=== PATIENT | male | born 1930 | race Caucasian/White ===

== ENCOUNTER 2016-07-08 18:01 | Emergency (ER) | payer MEDICARE ==
--- NOTE | 2016-07-08 20:05 | ED ---
General Adult HPI - General Chief complaint: Extremity Problem,Nontraumatic Stated complaint: POST OP LEG PROBLEM Time Seen by Provider: 07/08/16 19:08 Source: patient Mode of arrival: wheelchair Limitations: physical limitation - History of Present Illness Initial comments: Patient is an 85-year-old male status post stenting of the left SFA yesterday presenting with numbness to the right leg. Patient had stenting due to left leg pain from claudication. Access was through the right groin. Patient underwent procedure without complication and was discharged this afternoon. Shortly after getting home patient developed numbnessin his right leg extending to his calf. Surgeon was Dr. Hendrickson. Patient continues to use aspirin & Plavix. Otherwise patient denies any fever, chills, chest pain, shortness of breath, nausea, vomiting, diarrhea. Denies any muscle weakness. - Related Data Home Medications Medication Instructions Recorded Confirmed Calcium Carbonate/Vitamin D3 1 tab PO DAILY 12/23/14 07/08/16 [Calcium 600-Vit D3 400 Tablet] Cholecalciferol [Vitamin D3] 1,000 unit PO DAILY 12/23/14 07/08/16 Ferrous Sulfate [Iron (65 MG 325 mg PO HS 12/23/14 07/08/16 Elemental)] Isosorbide Mononitrate ER [Imdur] 60 mg PO QAM 12/23/14 07/08/16 Magnesium Chloride [Slow-Mag] 64 mg PO DAILY 12/23/14 07/08/16 Metoprolol Tartrate 25 mg PO BID 12/23/14 07/08/16 Multivitamins, Thera [Multivitamin] 1 tab PO DAILY 12/23/14 07/08/16 Naproxen Sodium [Aleve] 220 mg PO Q12HR PRN 12/23/14 07/08/16 [place]-3 Fatty Acids/Fish Oil [Fish 1,000 mg PO DAILY 12/23/14 07/08/16 Oil 1,000 mg Softgel] Omeprazole 40 mg PO DAILY 12/23/14 07/08/16 Ramipril [Altace] 5 mg PO QAM 12/23/14 07/08/16 Simvastatin [Zocor] 40 mg PO DAILY 12/23/14 07/08/16 Triamterene-Hctz 37.5-25Mg 1 cap PO DAILY 07/13/15 01/26/17 [Dyazide 37.5-25 Capsule] Aspirin [Adult Low Dose Aspirin EC] 81 mg PO HS 06/01/16 07/08/16 Bicalutamide [Casodex] 50 mg PO HS 06/01/16 07/08/16 Ubidecarenone [Co Q-10] 200 mg PO HS 06/01/16 07/08/16 Vit C/E/Zn/Coppr/Lutein/Zeaxan 1 cap PO BID 06/01/16 07/08/16 [Preservision Areds 2 Softgel] Previous Rx's Medication Instructions Recorded Clopidogrel [Plavix] 75 mg PO DAILY #1 tablet 07/08/16 Allergies Allergy/AdvReac Type Severity Reaction Status Date / Time shellfish derived [Shellfish] Allergy Nausea & Verified 07/08/16 19:40 Vomiting Review of Systems ROS Statement: Those systems with pertinent positive or pertinent negative responses have been documented in the HPI. ROS Other: All systems not noted in ROS Statement are negative. Past Medical History Past Medical History: Coronary Artery Disease (CAD), Cancer, GERD/Reflux, Hyperlipidemia, Hypertension, Osteoarthritis (OA), Sleep Apnea/CPAP/BIPAP, Vascular Disorder Additional Past Medical History / Comment(s): FIGUEROA'S ESOPHAGUS, hx skin cancer-recent areas to back removed, 44 radiation txs-last tx 06-04-17 for prostate cancer, now psa 0.0465,irregular heart rate, varicose veins,uses cpap History of Any Multi-Drug Resistant Organisms: None Reported Past Surgical History: Heart Catheterization With Stent Additional Past Surgical History / Comment(s): Abdominal Aortogram with Lower Ext Runoff, HEART STENTS X 3, JULIANN CATARACTS, MOEH'S PROCEDURES TO FACE, 07-07-16 LT FEM-POP ARTHRECTOMY AND 2 STENTS TO SFA. Left leg stent Past Anesthesia/Blood Transfusion Reactions: No Reported Reaction Date of Last Stent Placement:: 2003 Past Psychological History: No Psychological Hx Reported Smoking Status: Former smoker Past Alcohol Use History: None Reported Additional Past Alcohol Use History / Comment(s): QUIT SMOKING APPROX 2005, SMOKED FOR APPROX 50 YRS, 1 PPD. 1-2 glasses of wine daily Past Drug Use History: None Reported - Past Family History Brother(s) Family Medical History: Cancer Father Family Medical History: Cancer Daughter(s) Family Medical History: Deep Vein Thrombosis (DVT) General Exam - General Exam Comments Initial Comments: Constitutional: Patient appears well-developed and well-nourished. No distress. Head: Normocephalic and atraumatic. Eyes: Conjunctivae and EOM are normal. Right eye exhibits no discharge. Left eye exhibits no discharge. No scleral icterus. Neck: Normal range of motion. Neck supple. Cardiovascular: Normal rate and regular rhythm. No murmur heard. Pulmonary/Chest: Effort normal and breath sounds normal. No respiratory distress. No wheezes. Abdominal: Soft. No distension. There is no tenderness. There is no rebound and no guarding. : Right inguinal hernia which is reducible. Right incision is clean/dry/intact, no bleeding. Musculoskeletal: Normal range of motion. No edema or tenderness. Patient with 5 out of 5 muscle strength of bilateral lower extremities including hip flexors/extensors, knee flexors/extensors, plantar flexion and dorsi flexion. Neurological: Patient alert and oriented to person, place, and time. Patient has decreased sensation to the medial aspect of his upper right thigh and entire lower leg. Sensation is intact to first webspace, medial and lateral aspect of right foot. Sensation isn't intact to entire left leg. Bilateral DP pulses are present. Skin: Skin is warm and dry. Not diaphoretic. Nursing notes and vitals reviewed. Limitations: physical limitation Course Vital Signs 07/08/16 07/08/16 18:14 20:50 Temperature 98.1 F Pulse Rate 102 H 54 L Respiratory 20 16 Rate Blood Pressure 136/74 129/60 O2 Sat by Pulse 98 95 Oximetry - Reevaluation(s) Reevaluation #1: Patient updated on plan and CT ordered. Radiology department requesting that he gets pretreated given history of pretreatment however patient states he's not ALLERGIC to contrast. - Consultations Consultation #1: Discussed care with Dr. Barnes covering for Dr. Hendrickson. Medical Decision Making - Medical Decision Making Patient's an 85-year-old male status post stenting of his left SFA with right femoral artery access presenting with right leg paresthesias. Patient's blood was unremarkable with a stable hemoglobin 12.2. BMP unremarkable. CT angiogram did not show any mass effect or bleeding postoperatively causing the paresthesias. Patient significantly improved while here. CTA did show stenosis of bilateral lower x-rays which patient is aware of. Prior to discharge , patient was resting comfortably in bed. Course of stay improved. Denies pain. Discussed physical exam and diagnostic tests with patient. Questions answered and patient is agreeable to discharge with close follow up with Primary Care Physician. Instructed to return to Emergency Department if symptoms worsen. - Lab Data Result diagrams: 07/08/16 19:34 07/08/16 19:34 Lab Results 07/08/16 07/08/16 Range/Units 19:34 19:34 WBC 5.1 (3.8-10.6) k/uL RBC 3.73 L (4.30-5.90) m/uL Hgb 12.2 L (13.0-17.5) gm/dL Hct 35.8 L (39.0-53.0) % MCV 95.9 (80.0-100.0) fL MCH 32.7 (25.0-35.0) pg MCHC 34.1 (31.0-37.0) g/dL RDW 13.6 (11.5-15.5) % Plt Count 170 (150-450) k/uL Neutrophils % 80 % Lymphocytes % 7 % Monocytes % 9 % Eosinophils % 2 % Basophils % 0 % Neutrophils # 4.0 (1.3-7.7) k/uL Lymphocytes # 0.3 L (1.0-4.8) k/uL Monocytes # 0.5 (0-1.0) k/uL Eosinophils # 0.1 (0-0.7) k/uL Basophils # 0.0 (0-0.2) k/uL Sodium 138 (137-145) mmol/L Potassium 3.7 (3.5-5.1) mmol/L Chloride 102 (98-107) mmol/L Carbon Dioxide 22 (22-30) mmol/L Anion Gap 14 mmol/L BUN 23 H (9-20) mg/dL Creatinine 1.13 (0.66-1.25) mg/dL Est GFR (MDRD) Af Amer >60 (>60 ml/min/1.73 sqM) Est GFR (MDRD) Non-Af >60 (>60 ml/min/1.73 sqM) Glucose 128 H (74-99) mg/dL Calcium 9.7 (8.4-10.2) mg/dL Disposition Clinical Impression: Paresthesia Disposition: HOME SELF-CARE Condition: Good Instructions: Paresthesia (ED) Referrals: Gus Franco MD [Primary Care Provider] - 1-2 days Brooks Hendrickson MD [STAFF PHYSICIAN] - 1-2 days
[2016-07-08] MEDS ORDERED: RX INFO: IV CONTRAST WAS GIVEN 1 EACH MISC MISCELLANE PRN (20:14)
[2016-07-08] MEDS ORDERED: FAMOTIDINE 20 MG/2 ML VIAL IV STA (20:25)
[2016-07-08] MEDS ORDERED: methylPREDNISolone SOD SUCCI 125 MG/2 ML VIAL IV STA (20:25)
[2016-07-08] MEDS: diphenhydrAMINE 50 MG/ML 1 ML VIAL IVP STA ×2 (20:43→20:48)
[2016-07-08 20:53] LABS: Basophils % (A) 0 %; CH 33.2; CHCM 34.8; Eosinophils # (A) 0.1 k/uL (0-0.7); Eosinophils % (A) 2 %; HCT 35.8 % (39.0-53.0); HDW 2.58; HGB 12.2 gm/dL (13.0-17.5); Luc # (Auto) 0.11; Luc % (Auto) 2; Lymphocytes # (A) 0.3 k/uL (1.0-4.8); Lymphocytes % (A) 7 %; MCH 32.7 pg (25.0-35.0); MCHC 34.1 g/dL (31.0-37.0); MCV 95.9 fL (80.0-100.0); Mean Platelet Volume 7.2; Monocytes # (A) 0.5 k/uL (0-1.0); Monocytes % (A) 9 %; Neutrophils % (A) 80 %; RBC 3.73 m/uL (4.30-5.90); RDW 13.6 % (11.5-15.5); WBC 5.1 k/uL (3.8-10.6); WBC (Perox) 5.28
[2016-07-08 21:05] LABS: Anion Gap 14 mmol/L; Blood Urea Nitrogen 23 mg/dL (9-20); Calcium 9.7 mg/dL (8.4-10.2); Carbon Dioxide 22 mmol/L (22-30); Chloride 102 mmol/L (98-107); Glucose 128 mg/dL (74-99); Non-African American GFR(MDRD) >60 (>60 ml/min/1.73 sqM); Potassium 3.7 mmol/L (3.5-5.1); Sodium 138 mmol/L (137-145)
--- NOTE | 2016-07-08 22:47 | CT ---
EXAMINATION TYPE: CT ANGIO ABD AORTA WO/W CON DATE OF EXAM: 07/08/2016 10:06 PM COMPARISON: CT June 03, 2015 HISTORY: Right lower extremity numbness after left Fem-Pop arthrectomy and 2 stents to SFA on 07-07-[address] DLP: 1133.80 mGycm. Automated exposure control for dose reduction was used. TECHNIQUE: Performed with IV Contrast, patient injected with 100 mL of Omnipaque 350. FINDINGS: Imaging was obtained from the dome of the diaphragm to the level of the midcalf bilaterally . There are prominent nonaneurysmal atherosclerotic calcification and tortuosity seen throughout the visualized arterial anatomy. The aortoiliac inflow is widely patent. THE RIGHT external iliac artery is patent, as is the right internal iliac and the right common femora l artery. There are several stenoses throughout the course of the right superficial femoral artery, a nd the profunda femoral artery, but both appear patent - as does the popliteal artery. The anterior t ibial artery appears to occlude 5 cm distal to its origin. The posterior tibial artery patency is dif ficult to confirm, but the peroneal artery appears patent. THE LEFT external iliac artery is patent, as is the left internal iliac and the left common femoral a rtery. There are several stenoses throughout the course of the left superficial femoral artery, and t he profunda femoral artery, but both appear patent - as does the popliteal artery and a three vessel runoff. NONVASCULAR FINDINGS: No definite acute abdominal pelvic process, but there is a new finding since t he June 03, 2015 CT; there is a new right inguinal herniation of normal-appearing mesentery and s mall bowel loops noted, lateral to the inferior epigastric vasculature. IMPRESSION: 1. RIGHT LOWER EXTREMITY: MULTIFOCAL SIGNIFICANT APPEARING RIGHT SFA STENOSES, WITH A SINGLE VESSEL RUNOFF. 2. LEFT LOWER EXTREMITY: MULTIFOCAL SIGNIFICANT APPEARING LEFT SFA STENOSES, WITH THREE VESSEL RUNOFF . 3. NONSTRANGULATED RIGHT INGUINAL HERNIA.
[2016-07-08 23:53] VITALS: BP 170/79; PULSE 81; RESP 18; TEMP 97.5
== END 2016-07-08 23:47 | disposition home or self-care (01) ==
LOC: EC 18:01
DX: R20.0 Anesthesia of skin (principal); Z95.820 Peripheral vascular angioplasty status with implants and grafts; K21.9 Gastro-esophageal reflux disease without esophagitis; I10 Essential (primary) hypertension; E78.5 Hyperlipidemia, unspecified; I25.10 Atherosclerotic heart disease of native coronary artery without angina pectoris; K22.70 Barrett's esophagus without dysplasia; M19.90 Unspecified osteoarthritis, unspecified site; Z95.5 Presence of coronary angioplasty implant and graft; Z79.82 Long term (current) use of aspirin; Z79.899 Other long term (current) drug therapy; Z92.3 Personal history of irradiation; Z85.46 Personal history of malignant neoplasm of prostate; Z85.828 Personal history of other malignant neoplasm of skin; Z87.891 Personal history of nicotine dependence; Z91.041 Radiographic dye allergy status
CPT/HCPCS: 99284; 36415; 80048; 85025; 75635; 96374; 96375; J1200; J2930; Q9967

== ENCOUNTER → 2016-07-15 | Outpatient (CLI) | payer MEDICARE ==
--- NOTE | 2016-07-15 12:30 | XR ---
EXAMINATION TYPE: XR chest 2V DATE OF EXAM: 07/15/2016 12:23 PM COMPARISON: 06/03/2015 HISTORY: Cough and congestion FINDINGS: The lungs are clear and there is no pneumothorax, pleural effusion, or focal pneumonia. Heart is enl arged and atherosclerotic change aorta. Biapical pleural-based thickening noted. Arthropathy of the s houlders noted. Findings suggest COPD. Hypertrophic and degenerative change of the spine noted. IMPRESSION: 1. No acute process.
== END | disposition home or self-care (01) ==
LOC: RADXRMAIN 12:10
PROVIDERS: ATTEND Otolaryngology
DX: J20.9 Acute bronchitis, unspecified (principal)
CPT/HCPCS: 71020

== ENCOUNTER → 2016-11-10 | Outpatient (CLI) | payer MEDICARE ==
--- NOTE | 2016-11-10 11:44 | XR ---
Lumbosacral spine HISTORY: Prostate carcinoma, low back pain, other instability 5 views of the lumbosacral spine No comparisons Bone mineralization is reduced. There is multilevel spondylosis. No spondylolysis. Lumbar vertebral b odies show preserved height and alignment. There is minimal anterolisthesis grade 1 L5-S1. Some loss of disc height at the intervertebral levels is noted. Sclerosis present in the posterior elements. At herosclerotic vascular calcifications are noted, infrarenal aorta somewhat prominent. IMPRESSION: Anterolisthesis grade 1 L5-S1, degenerative disc disease. Facet arthropathy. Aortic ectas ia.
== END | disposition home or self-care (01) ==
LOC: RADXRMAIN 09:59
PROVIDERS: ATTEND Internal Medicine
DX: C61 Malignant neoplasm of prostate (principal); M43.17 Spondylolisthesis, lumbosacral region; M51.36 Other intervertebral disc degeneration, lumbar region; M46.86 Other specified inflammatory spondylopathies, lumbar region
CPT/HCPCS: 72110

== ENCOUNTER 2016-12-08 01:49 | Inpatient (IN) | payer MEDICARE ==
[2016-12-08] MEDS ORDERED: SODIUM CHLORIDE 0.9% 500 ML IV STA (02:02)
[2016-12-08] MEDS ORDERED: MORPHINE SULFATE 2 MG/ML SYRINGE IVP STA (02:02)
[2016-12-08] MEDS ORDERED: ONDANSETRON 4 MG/2 ML VIAL IVP STA (02:02)
--- NOTE | 2016-12-08 02:11 | ED ---
Abdominal Pain HPI - General Source: patient, EMS, RN notes reviewed Mode of arrival: EMS Limitations: no limitations <Luis Bagley - Last Filed: 12/08/16 02:09> <Gilbert Mehta - Last Filed: 12/08/16 05:13> - General Chief Complaint: Abdominal Pain Stated Complaint: Abdominal Pain Time Seen by Provider: 12/08/16 01:56 - History of Present Illness Initial Comments: This is a 5-year-old male presents emergency Department chief complaint abdominal pain. Patient states the pain started after eating dinner tonight. Patient states his lower abdominal pain and diffuse in nature. Patient denies any associated nausea, vomiting, diarrhea constipation. Denies any dysuria or hematuria. Patient states that he also has chronic back and right leg pain. Patient states that he had an epidural performed by Dr. Rivas yesterday. Patient did admit to a fall after when he was changing. Patient states he fell and hit a wastebasket causing an injury to the right side of his neck. Patient denies any headache or dizziness. Denies fever or chills. (Luis Bagley) Patient states fall was 2 days ago. (Gilbert Mehta) - Related Data Home Medications Medication Instructions Recorded Confirmed Calcium Carbonate/Vitamin D3 1 tab PO DAILY 12/23/14 07/08/16 [Calcium 600-Vit D3 400 Tablet] Cholecalciferol [Vitamin D3] 1,000 unit PO DAILY 12/23/14 07/08/16 Ferrous Sulfate [Iron (65 MG 325 mg PO HS 12/23/14 07/08/16 Elemental)] Isosorbide Mononitrate ER [Imdur] 60 mg PO QAM 12/23/14 07/08/16 Magnesium Chloride [Slow-Mag] 64 mg PO DAILY 12/23/14 07/08/16 Metoprolol Tartrate 25 mg PO BID 12/23/14 07/08/16 Multivitamins, Thera [Multivitamin 1 tab PO DAILY 12/23/14 07/08/16 (formulary)] Naproxen Sodium [Aleve] 220 mg PO Q12HR PRN 12/23/14 07/08/16 [place]-3 Fatty Acids/Fish Oil [Fish 1,000 mg PO DAILY 12/23/14 07/08/16 Oil 1,000 mg Softgel] Omeprazole 40 mg PO DAILY 12/23/14 07/08/16 Ramipril [Altace] 5 mg PO QAM 12/23/14 07/08/16 Simvastatin [Zocor] 40 mg PO DAILY 12/23/14 07/08/16 Triamterene-Hctz 37.5-25Mg 1 cap PO DAILY 12/23/14 07/08/16 [Dyazide 37.5-25 Capsule] Aspirin [Adult Low Dose Aspirin EC] 81 mg PO HS 06/01/16 07/08/16 Bicalutamide [Casodex] 50 mg PO HS 06/01/16 07/08/16 Ubidecarenone [Co Q-10] 200 mg PO HS 06/01/16 07/08/16 Vit C/E/Zn/Coppr/Lutein/Zeaxan 1 cap PO BID 06/01/16 07/08/16 [Preservision Areds 2 Softgel] Previous Rx's Medication Instructions Recorded Clopidogrel [Plavix] 75 mg PO DAILY #1 tablet 07/08/16 Allergies Allergy/AdvReac Type Severity Reaction Status Date / Time shellfish derived [Shellfish] Allergy Nausea & Verified 12/08/16 02:44 Vomiting Review of Systems ROS Other: All systems not noted in ROS Statement are negative. <Luis Bagley - Last Filed: 12/08/16 02:09> ROS Other: All systems not noted in ROS Statement are negative. <Gilbert Mehta - Last Filed: 12/08/16 05:13> ROS Statement: Those systems with pertinent positive or pertinent negative responses have been documented in the HPI. Past Medical History Past Medical History: Coronary Artery Disease (CAD), Cancer, GERD/Reflux, Hyperlipidemia, Hypertension, Osteoarthritis (OA), Sleep Apnea/CPAP/BIPAP, Vascular Disorder Additional Past Medical History / Comment(s): FIGUEROA'S ESOPHAGUS, hx skin cancer-recent areas to back removed, 44 radiation txs-last tx 06-04-17 for prostate cancer, now psa 0.0465,irregular heart rate, varicose veins,uses cpap History of Any Multi-Drug Resistant Organisms: None Reported Past Surgical History: Heart Catheterization With Stent Additional Past Surgical History / Comment(s): Abdominal Aortogram with Lower Ext Runoff, HEART STENTS X 3, JULIANN CATARACTS, MOEH'S PROCEDURES TO FACE, 1-25-17 LT FEM-POP ARTHRECTOMY AND 2 STENTS TO SFA. Left leg stent Past Anesthesia/Blood Transfusion Reactions: No Reported Reaction Date of Last Stent Placement:: 2003 Past Psychological History: No Psychological Hx Reported Smoking Status: Former smoker Past Alcohol Use History: Occasional Past Drug Use History: None Reported - Past Family History Brother(s) Family Medical History: Cancer Father Family Medical History: Cancer Daughter(s) Family Medical History: Deep Vein Thrombosis (DVT) <Luis Bagley - Last Filed: 12/08/16 02:09> General Exam Limitations: no limitations General appearance: alert, in no apparent distress Respiratory exam: Present: normal lung sounds bilaterally. Absent: respiratory distress, wheezes, rales, rhonchi, stridor Cardiovascular Exam: Present: regular rate, normal rhythm, normal heart sounds. Absent: systolic murmur, diastolic murmur, rubs, gallop, clicks GI/Abdominal exam: Present: soft, tenderness (minimal low abdominal tenderness) , normal bowel sounds. Absent: distended, guarding, rebound, rigid Extremities exam: Present: other (lower extremity strength equal bilateral neurovascular intact pedal pulses equal bilaterally there is no rashes noted equal color equal warmth) Back exam: Present: full ROM, tenderness (lumbar). Absent: CVA tenderness (R), CVA tenderness (L) Neurological exam: Present: alert, oriented X3, CN II-XII intact, reflexes normal. Absent: motor sensory deficit Skin exam: Present: warm, dry <Luis Bagley - Last Filed: 12/08/16 02:09> Course <Luis Bagley - Last Filed: 12/08/16 02:09> <Gilbert Mehta - Last Filed: 12/08/16 05:13> Vital Signs 12/08/16 12/08/16 12/08/16 01:50 02:11 02:31 Temperature 98.7 F Pulse Rate 85 80 78 Respiratory 18 18 18 Rate Blood Pressure 199/93 195/84 167/71 O2 Sat by Pulse 97 96 96 Oximetry 12/08/16 12/08/16 02:51 03:58 Temperature Pulse Rate 75 76 Respiratory 18 18 Rate Blood Pressure 132/62 168/78 O2 Sat by Pulse 96 96 Oximetry - Reevaluation(s) Reevaluation #1: 12/08/16 04:45 Patient reevaluated by myself, Dr. Mehta. Patient is comfortable resting in bed. Abdomen is soft and nontender. No significant back pain to palpation. Distally extremity is neurovascularly intact. Good strength. Good sensation. Pedal pulses 2/4 bilateral. Patient updated on results. Dr. Hinson has been paged. 12/08/16 05:13 Case was earlier discussed with Dr. Hinson, who will admit. (Gilbert Mehta) Medical Decision Making - Lab Data Result diagrams: 12/08/16 02:00 12/08/16 02:00 - Radiology Data Radiology results: report reviewed (Computed tomography scan of the abdomen and pelvis shows concern for acute insufficiency fractures consisting of nondisplaced fractures anterior inferior corner L1 vertebral body, bilateral transverse L5, and right sacrum with suspected left sacrum.) <Gilbert Mehta - Last Filed: 12/08/16 05:13> - Lab Data Lab Results 12/08/16 12/08/16 12/08/16 Range/Units 02:00 02:00 02:09 WBC 8.2 (3.8-10.6) k/uL RBC 3.79 L (4.30-5.90) m/uL Hgb 11.9 L (13.0-17.5) gm/dL Hct 34.8 L (39.0-53.0) % MCV 91.7 (80.0-100.0) fL MCH 31.3 (25.0-35.0) pg MCHC 34.1 (31.0-37.0) g/dL RDW 14.0 (11.5-15.5) % Plt Count 193 (150-450) k/uL Neutrophils % 90 % Lymphocytes % 4 % Monocytes % 5 % Eosinophils % 1 % Basophils % 0 % Neutrophils # 7.4 (1.3-7.7) k/uL Lymphocytes # 0.3 L (1.0-4.8) k/uL Monocytes # 0.4 (0-1.0) k/uL Eosinophils # 0.1 (0-0.7) k/uL Basophils # 0.0 (0-0.2) k/uL Sodium 135 L (137-145) mmol/L Potassium 4.0 (3.5-5.1) mmol/L Chloride 98 (98-107) mmol/L Carbon Dioxide 26 (22-30) mmol/L Anion Gap 11 mmol/L BUN 32 H (9-20) mg/dL Creatinine 1.20 (0.66-1.25) mg/dL Est GFR (MDRD) Af Amer >60 (>60 ml/min/1.73 sqM) Est GFR (MDRD) Non-Af 57 (>60 ml/min/1.73 sqM) Glucose 131 H (74-99) mg/dL Calcium 9.7 (8.4-10.2) mg/dL Total Bilirubin 0.5 (0.2-1.3) mg/dL AST 26 (17-59) U/L ALT 36 (21-72) U/L Alkaline Phosphatase 104 (38-126) U/L Total Protein 7.4 (6.3-8.2) g/dL Albumin 4.5 (3.5-5.0) g/dL Amylase 77 (30-110) U/L Lipase 131 (23-300) U/L Urine Color Light Yellow Urine Appearance Clear (Clear) Urine pH 6.0 (5.0-8.0) Ur Specific [place] 1.006 (1.001-1.035) Urine Protein Negative (Negative) Urine Glucose (UA) Negative (Negative) Urine Ketones Negative (Negative) Urine Blood Negative (Negative) Urine Nitrite Negative (Negative) Urine Bilirubin Negative (Negative) Urine Urobilinogen <2.0 (<2.0) mg/dL Ur Leukocyte Esterase Negative (Negative) Disposition <Luis Bagley - Last Filed: 12/08/16 02:09> Decision Time: 05:13 <Gilbert Mehta - Last Filed: 12/08/16 05:13> Clinical Impression: Fracture of lumbar spine Disposition: ADMITTED IP TO THIS [facility] Referrals: Gus Franco MD [Primary Care Provider] - 1-2 days
[2016-12-08 02:18] LABS: Appearance,Urine Clear (Clear); Bilirubin,Urine Negative (Negative); Glucose,Urine (UA) Negative (Negative); Ketones,Urine Negative (Negative); Leukocyte Esterase,Urine Negative (Negative); Nitrite,Urine Negative (Negative); Protein,Urine Negative (Negative); Specific Gravity,Urine 1.006 (1.001-1.035); UA Billing (MACRO vs. MICRO) CHEM; Urobilinogen,Urine <2.0 mg/dL (<2.0)
[2016-12-08 02:22] LABS: ALT 36 U/L (21-72); AST 26 U/L (17-59); Alkaline Phosphatase 104 U/L (38-126); Amylase 77 U/L (30-110); Anion Gap 11 mmol/L; Blood Urea Nitrogen 32 mg/dL (9-20); Calcium 9.7 mg/dL (8.4-10.2); Carbon Dioxide 26 mmol/L (22-30); Chloride 98 mmol/L (98-107); Glucose 131 mg/dL (74-99); Non-African American GFR(MDRD) 57 (>60 ml/min/1.73 sqM); Sodium 135 mmol/L (137-145); Total Bilirubin 0.5 mg/dL (0.2-1.3); Total Protein 7.4 g/dL (6.3-8.2)
[2016-12-08 02:30] LABS: Basophils % (A) 0 %; CH 31.7; CHCM 34.7; Eosinophils # (A) 0.1 k/uL (0-0.7); Eosinophils % (A) 1 %; HCT 34.8 % (39.0-53.0); HGB 11.9 gm/dL (13.0-17.5); Luc # (Auto) 0.08; Luc % (Auto) 1; Lymphocytes # (A) 0.3 k/uL (1.0-4.8); Lymphocytes % (A) 4 %; MCH 31.3 pg (25.0-35.0); MCHC 34.1 g/dL (31.0-37.0); MCV 91.7 fL (80.0-100.0); Mean Platelet Volume 7.2; Monocytes # (A) 0.4 k/uL (0-1.0); Monocytes % (A) 5 %; Neutrophils # (A) 7.4 k/uL (1.3-7.7); Neutrophils % (A) 90 %; RBC 3.79 m/uL (4.30-5.90); WBC 8.2 k/uL (3.8-10.6); WBC (Perox) 8.37
[2016-12-08] MEDS ORDERED: RX INFO: IV CONTRAST WAS GIVEN 1 EACH MISC MISCELLANE PRN (02:50)
--- NOTE | 2016-12-08 02:59 | XR ---
INDICATION: Abdominal pain COMPARISON: None. FINDINGS: AP views of the abdomen (2 images) are provided. Bowel gas pattern is nonobstructive with moderate roque colonic gas and stool. No abnormally dilated bowel loops are visualized. There are mesenteric vascular calcifications. There is lumbar spondylosis without evidence of acute osseous abnormality. IMPRESSION: Nonobstructive bowel gas pattern. Moderate roque colonic stool retention.
--- NOTE | 2016-12-08 04:16 | CT ---
INDICATION: Abdominal pain, history of prostate cancer, recent epidural pain injection. TECHNIQUE: Multiple, contiguous axial cuts of the abdomen and pelvis are obtained from the lung bases to the ischial tuberosities following the administration of 120 mL Visipaque 320 IV contrast. Image acquisition is performed during early and delayed postcontrast phases. Sagittal and coronal reformatted images are available. DOSE INFORMATION: CTDIvol 64.49 mGy; DLP 2789 mGy-cm. Technique more: This CT exam was performed using one or more of the following dose reduction techniques: automated exposure control, adjustment of the mA and/or kV according to patient size, and/or use of iterative reconstruction technique. COMPARISON: CT abdomen and pelvis, 06/03/15 FINDINGS: There is bibasilar subsegmental atelectasis. Stable hepatic hypodensities, too small to characterize but statistically representing cysts. The gallbladder, pancreas, and left adrenal gland are unremarkable. There is a stable 1.4 cm right adrenal nodule. Splenic calcifications are consistent with old granulomatous disease. There are bilateral renal cysts. Nonobstructing renal calcifications are similar to prior exam and may be vascular. There is no hydronephrosis. There is extensive aortoiliac and mesenteric atherosclerosis. There is no aneurysm. There is no adenopathy. There is no evidence of small or large bowel obstruction. There is a right inguinal hernia containing a loop of small bowel. The visualized appendix is normal. There is colonic diverticulosis without acute diverticulitis. There is prostatomegaly. There is mild distention of the urinary bladder. There is no free fluid or free air. Bones are osteopenic. There is an acute nondisplaced fracture extending through the anteroinferior corner of the L1 vertebral body extending to the L1-L2 disc space but without extension to the posterior vertebral body margin and without retropulsion (6-66). There are acute nondisplaced fractures of the bilateral transverse processes at L5. There is an acute nondisplaced fracture through the right sacrum. There is a suspected acute nondisplaced fracture through the left sacrum. No underlying pathologic lesions are visualized. IMPRESSION: 1. Acute insufficiency fractures consisting of nondisplaced fracture through the anteroinferior corner of the L1 vertebral body, acute nondisplaced fractures of the bilateral transverse processes of L5, and acute fracture through the right sacrum with suspected acute left-sided sacral fracture as well.
[2016-12-08] MEDS ORDERED: MORPHINE SULFATE 4 MG/ML SYRINGE IV PRN (05:14)
[2016-12-08] MEDS ORDERED: NALOXONE 0.4 MG/ML 1 ML VIAL IV PRN (05:14)
[2016-12-08] MEDS: SODIUM CHLORIDE 0.9% 1,000 ML IV SCH (07:41)
--- NOTE | 2016-12-08 12:59 | P.HPOR ---
History of Present Illness H&P Date: 12/08/16 This is an 85-year-old male who is admitted for multiple lumbar fractures. Patient states he received an epidural injection by Dr. Rivas on Tuesday, . Patient states after the injection he didn't realize his right leg was numb. This caused the patient to fall while the patient was getting dressed. Patient states he hit his neck on a wastebasket. Patient denies any loss of consciousness. Patient states he was evaluated after his fall and was a little sore but seemed to be getting better. Patient states that Tuesday night the pain in his lower back and right leg was getting worse. Patient also states he had some abdominal pain that he was concerned about. Patient presented to the [facility] early this morning for further evaluation and was found to have multiple lumbar fractures on CT scan. Patient's who is also present in the room states the patient had an MRI on 12/01/2016 showing evidence for possible sacral fractures, but states there were no compression fractures of the spine on this MRI. Patient states he has pain that radiates down the right leg all the way to the right foot. Patient denies any numbness, weakness, or tingling to the right lower extremity. Patient states he has no pain to the left lower extremity. Patient denies any change in bowel or bladder function or loss of sensation to the saddle area. Patient states his abdominal pain is better today. Patient states he has some mild soreness in the neck, but this has somewhat improved. Patient denies any fever, chills, headache, nausea/ vomiting/diarrhea. Review of Systems See HPI. Past Medical History Past Medical History: Coronary Artery Disease (CAD), Cancer, GERD/Reflux, Hyperlipidemia, Hypertension, Osteoarthritis (OA), Sleep Apnea/CPAP/BIPAP, Vascular Disorder Additional Past Medical History / Comment(s): FIGUEROA'S ESOPHAGUS, hx skin cancer-recent areas to back removed, 44 radiation txs-last tx 06-04-17 for prostate cancer, now psa 0.0465,irregular heart rate, varicose veins,uses cpap History of Any Multi-Drug Resistant Organisms: None Reported Past Surgical History: Heart Catheterization With Stent Additional Past Surgical History / Comment(s): Abdominal Aortogram with Lower Ext Runoff, HEART STENTS X 3, JULIANN CATARACTS, MOEH'S PROCEDURES TO FACE, 07-07-16 LT FEM-POP ARTHRECTOMY AND 2 STENTS TO SFA. Left leg stent Past Anesthesia/Blood Transfusion Reactions: No Reported Reaction Date of Last Stent Placement:: 2003 Past Psychological History: No Psychological Hx Reported Smoking Status: Former smoker Past Alcohol Use History: Occasional Past Drug Use History: None Reported - Past Family History Brother(s) Family Medical History: Cancer Father Family Medical History: Cancer Daughter(s) Family Medical History: Deep Vein Thrombosis (DVT) Medications and Allergies Home Medications Medication Instructions Recorded Confirmed Type Calcium Carbonate/Vitamin D3 1 tab PO DAILY 12/23/14 12/08/16 History [Calcium 600-Vit D3 400 Tablet] Ferrous Sulfate [Iron (65 MG 325 mg PO HS 12/23/14 12/08/16 History Elemental)] Isosorbide Mononitrate ER [Imdur] 60 mg PO QAM 12/23/14 12/08/16 History Magnesium Chloride [Slow-Mag] 64 mg PO DAILY 12/23/14 12/08/16 History Metoprolol Tartrate 25 mg PO BID 12/23/14 12/08/16 History Multivitamins, Thera [Multivitamin 1 tab PO DAILY 12/23/14 12/08/16 History (formulary)] Naproxen Sodium [Aleve] 220 mg PO Q12HR PRN 12/23/14 12/08/16 History [facility]-3 Fatty Acids/Fish Oil [Fish 1,000 mg PO DAILY 12/23/14 12/08/16 History Oil 1,000 mg Softgel] Omeprazole 40 mg PO DAILY 12/23/14 12/08/16 History Simvastatin [Zocor] 40 mg PO DAILY 12/23/14 12/08/16 History Triamterene-Hctz 37.5-25Mg 1 cap PO DAILY 12/23/14 12/08/16 History [Dyazide 37.5-25 Capsule] Aspirin [Adult Low Dose Aspirin [facility]] 81 mg PO HS 06/01/16 12/08/16 History Ubidecarenone [Co Q-10] 200 mg PO HS 06/01/16 12/08/16 History Vit C/E/Zn/Coppr/Lutein/Zeaxan 1 cap PO BID 06/01/16 12/08/16 History [Preservision Areds 2 Softgel] Docusate [Colace] 100 mg PO DAILY 12/08/16 12/08/16 History Losartan Potassium [Cozaar] 50 mg PO DAILY 12/08/16 12/08/16 History Allergies Allergy/AdvReac Type Severity Reaction Status Date / Time shellfish derived [Shellfish] Allergy Nausea & Verified 12/08/16 08:11 Vomiting Physical Examination Patient is answering all questions appropriately. Patient is alert and oriented 3. Patient is in no acute distress. On examination of the head and neck patient has mild tenderness to palpation of the cervical midline. Patient has mild pain with range of motion of the head and neck. There is ecchymosis and an abrasion to the right side of the neck from when the patient fell. No sign of infection. No pain to palpation of bilateral shoulders, arms, wrists or hands. Patient has no pain with range of motion of bilateral upper extremities. Patient's strength is 5/5 to bilateral upper extremities. Neurovascular status intact. No pain with palpation of bilateral ribs. On exam of the patient's spine there is mild tenderness to palpation over the thoracic spine. There is significant tenderness to the lumbar spine and sacrum. No ecchymosis. On exam of bilateral lower extremities there is no tenderness to palpation. Patient has pain with range of motion of the right lower extremity. Patient is able to actively flex the right knee, but this is limited due to pain. Patient states he only has mild pain with range of motion of the left lower extremity. Patient has full foot and ankle motion with no tenderness. Strength is 5/5 bilateral lower extremities. Sensation intact. Dorsalis pedis pulses are 2+ bilaterally. Results CT scan on 12/08/2016 was reviewed showing: Acute insufficiency fractures consisting of a nondisplaced fracture through the anterior inferior corner of the L1 vertebral body, acute nondisplaced fractures of the bilateral transverse processes of L5, and acute fracture through the right sacrum with suspected acute left-sided sacral fracture as well. Reported by . - Labs Labs: Abnormal Lab Results - Last 24 Hours (Table) 12/08/16 12/08/16 Range/Units 02:00 02:00 RBC 3.79 L (4.30-5.90) m/uL Hgb 11.9 L (13.0-17.5) gm/dL Hct 34.8 L (39.0-53.0) % Lymphocytes # 0.3 L (1.0-4.8) k/uL Sodium 135 L (137-145) mmol/L BUN 32 H (9-20) mg/dL Glucose 131 H (74-99) mg/dL H & H 12/08/16 Range/Units 02:00 Hgb 11.9 L (13.0-17.5) gm/dL Hct 34.8 L (39.0-53.0) % Result Diagrams: 12/08/16 02:00 12/08/16 02:00 Assessment and Plan (1) Fracture of lumbar spine Status: Acute Plan: #1. Continue bed rest and head of bed less than 45. #2. Consult Dr. Rowan. #3. Appreciated input for medicine. #4. Will continue to follow the patient closely.
--- NOTE | 2016-12-08 17:22 | P.CNOR ---
History of Present Illness - HPI Consult date: 12/08/16 Consult reason: fracture, low back pain History of present illness: Patient is a very pleasant 85-year-old male who was seen and examined today at bedside. Apparently yesterday he was at [facility] for epidural steroid injections with Dr. Vela. He did well with his injection and when he was getting ready to leave he was standing up and changing his clothes. He tried to step down he didn't realize his leg was numb and he fell over while getting dressed. He did not hit his head on the ground. He says he denies any loss of consciousness. He says he felt very sore at his back and his legs yesterday. He says that since he's been in the hospital he has been feeling better. He's been laying still and feels that his pain is significantly improved. He denies any new pains. He denies any pain that his groin pain. He denies any changes in his bowel or bladder function. He still has some pain at his back and his leg but is reluctant to try to stand up. He had a new computed tomography scan of his lower back and that she'll multiple lumbar fractures on the computed tomography scan as well as transosseous process fractures at L5. It also showed sacral insufficiency fracture which was also noted on an MRI from 12/01/2016 prior to his fall. There did not appear to be obvious compression fractures on his MRI from 12/01. He denies any fevers chills or night sweats. He denies any chest pain or shortness of breath. Denies any loss of conscious. He denies any visual changes. Review of Systems As per HPI. He denies any abdominal pain. Denies any chest pain or shortness breath. He is able to breathe comfortably. He has been able to eat. He is passing gas appropriately. Past Medical History Past Medical History: Coronary Artery Disease (CAD), Cancer, GERD/Reflux, Hyperlipidemia, Hypertension, Osteoarthritis (OA), Sleep Apnea/CPAP/BIPAP, Vascular Disorder Additional Past Medical History / Comment(s): FIGUEROA'S ESOPHAGUS, hx skin cancer-recent areas to back removed, 44 radiation txs-last tx 06-04-17 for prostate cancer, now psa 0.0465,irregular heart rate, varicose veins,uses cpap History of Any Multi-Drug Resistant Organisms: None Reported Past Surgical History: Heart Catheterization With Stent Additional Past Surgical History / Comment(s): Abdominal Aortogram with Lower Ext Runoff, HEART STENTS X 3, JULIANN CATARACTS, MOEH'S PROCEDURES TO FACE, 07-07-16 LT FEM-POP ARTHRECTOMY AND 2 STENTS TO SFA. Left leg stent Past Anesthesia/Blood Transfusion Reactions: No Reported Reaction Date of Last Stent Placement:: 2003 Past Psychological History: No Psychological Hx Reported Smoking Status: Former smoker Past Alcohol Use History: Occasional Past Drug Use History: None Reported - Past Family History Brother(s) Family Medical History: Cancer Father Family Medical History: Cancer Daughter(s) Family Medical History: Deep Vein Thrombosis (DVT) Medications and Allergies Home Medications Medication Instructions Recorded Confirmed Type Calcium Carbonate/Vitamin D3 1 tab PO DAILY 12/23/14 12/08/16 History [Calcium 600-Vit D3 400 Tablet] Ferrous Sulfate [Iron (65 MG 325 mg PO HS 12/23/14 12/08/16 History Elemental)] Isosorbide Mononitrate ER [Imdur] 60 mg PO QAM 12/23/14 12/08/16 History Magnesium Chloride [Slow-Mag] 64 mg PO DAILY 12/23/14 12/08/16 History Metoprolol Tartrate 25 mg PO BID 12/23/14 12/08/16 History Multivitamins, Thera [Multivitamin 1 tab PO DAILY 12/23/14 12/08/16 History (formulary)] Naproxen Sodium [Aleve] 220 mg PO Q12HR PRN 12/23/14 12/08/16 History [place]-3 Fatty Acids/Fish Oil [Fish 1,000 mg PO DAILY 12/23/14 12/08/16 History Oil 1,000 mg Softgel] Omeprazole 40 mg PO DAILY 12/23/14 12/08/16 History Simvastatin [Zocor] 40 mg PO DAILY 12/23/14 12/08/16 History Triamterene-Hctz 37.5-25Mg 1 cap PO DAILY 12/23/14 12/08/16 History [Dyazide 37.5-25 Capsule] Aspirin [Adult Low Dose Aspirin [facility]] 81 mg PO HS 06/01/16 12/08/16 History Ubidecarenone [Co Q-10] 200 mg PO HS 06/01/16 12/08/16 History Vit C/E/Zn/Coppr/Lutein/Zeaxan 1 cap PO BID 06/01/16 12/08/16 History [Preservision Areds 2 Softgel] Docusate [Colace] 100 mg PO DAILY 12/08/16 12/08/16 History Losartan Potassium [Cozaar] 50 mg PO DAILY 12/08/16 12/08/16 History Allergies Allergy/AdvReac Type Severity Reaction Status Date / Time shellfish derived [Shellfish] Allergy Nausea & Verified 12/08/16 08:11 Vomiting Physical Examination Osteopathic Statement: *. No significant issues noted on an osteopathic structural exam other than those noted in the History and Physical/Consult. - L Spine: dermatomal strength & reflexes bilateral Strength: hip flexion: 4/5 (Has right lower extremity he has some global weakness due to pain. He is able to lift his legs up off the bed independently. He has sustained dorsal to plantar flexion and extensor hallucis longus equal bilaterally. He has some breakaway strength with hip flexion on the right. He is no tenderness with internal/external rotation of his hips. There is no open wounds lacerations or abrasions. At his back he has no open wounds lacerations or abrasions. There is no significant tenderness to palpation on the midline. He has some pain over his sacrum. His abdomen is soft nontender his chest has good excursion with deep inspiration and expiration his upper extremities have full active and passive range of motion his neck is nontender to palpation range of motion) Results - Labs Labs: Abnormal Lab Results - Last 24 Hours (Table) 12/08/16 12/08/16 Range/Units 02:00 02:00 RBC 3.79 L (4.30-5.90) m/uL Hgb 11.9 L (13.0-17.5) gm/dL Hct 34.8 L (39.0-53.0) % Lymphocytes # 0.3 L (1.0-4.8) k/uL Sodium 135 L (137-145) mmol/L BUN 32 H (9-20) mg/dL Glucose 131 H (74-99) mg/dL H & H 12/08/16 Range/Units 02:00 Hgb 11.9 L (13.0-17.5) gm/dL Hct 34.8 L (39.0-53.0) % Result Diagrams: 12/08/16 02:00 12/08/16 02:00 - Diagnostic results CT Scan - lumbar: report reviewed, image reviewed (Computed tomography scan on 12/08/2016 shows insufficiency fractures and nondisplaced fracture through the anterior corner of L1 vertebral body. There is non-displaced fractures the transverse process of L5. There is a fracture through the right sacrum and left sacral ala. 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 The fractures at L1 and L5 appear to be acute due to his fall yesterday. The patient has significant pain due to his fall and sustained a number of blunt injuries due to his fall and his osteoporosis. He has compression fractures and transverse process fractures at L5 and may do well with brace treatment. We do not plan any acute surgical intervention and he should do well with bracing and mobilization with physical therapy with the brace on. He does not need to use the brace while he is in bed area he may remove it when he is in bed and during bathing. He may also have some benefit with a donut seat cushion for his sacral insufficiency fracture for his comfort. The sacral insufficiency fracture was present prior to his fall yesterday. His legs appear to have good neurologic function at this point without acute change. We will see how his radicular symptoms continue to progress status post epidural steroid injection. I discussed his injuries and his issues as well as his treatment with him at length at bedside. I answered his questions best my ability in a language she can understand and is agreeable with plan. We'll continue to follow him along with you.
[2016-12-08] MEDS: METOPROLOL TARTRATE 25 MG TAB PO SCH (20:33)
[2016-12-08] MEDS: FERROUS SULFATE 325 MG TAB PO SCH (20:33)
[2016-12-08] MEDS: ASPIRIN 81 MG CHEW PO SCH (21:12)
[2016-12-09] MEDS: SODIUM CHLORIDE 0.9% 1,000 ML IV SCH (05:48)
--- NOTE | 2016-12-09 08:10 | P.PN ---
Progress Note - Text The patient is seen and examined today at bedside. He has not received his brace. He is sitting up at the chair next to his bed and having his breakfast. He says his pain is somewhat improved but still present and he has difficulty trying to move on his own. He is not complaining of numbness tingling in his lower extremity this morning other than his regular pain. He's afebrile stable vital signs He has sustained dorsal flexion plantarflexion and EHL and knee extension. His thighs and calves soft nontender. No signs symptoms of DVT His chest has good excursion deep inspection expiration Low back pain status post fall Acute on chronic back pain L1 compression fracture, acute osteoporotic due to low energy fall transverse process fractures L 5, acute Sacral insufficiency fractures, subacute The patient has new fractures as well as a subacute sacral insufficiency fracture with acute on chronic pain at his lower back. We need to continue to work on his mobility and pain control. He has not yet received his brace but this may allow him some improvement in terms of his mobilization. He should use the brace when working on his mobility. He should use a 1 out of bed but if he is in a well supported chair he can have the brace off. He can have the brace off while in bed and also for bathing. Would not plan any surgical intervention and once his pain is controlled and he is okay with his mobilization and safe from therapy we can plan for his discharge
[2016-12-09] MEDS: PANTOPRAZOLE 40 MG TABLET PO SCH (08:34)
[2016-12-09] MEDS: DOCUSATE 100 MG CAP PO SCH (08:34)
[2016-12-09] MEDS: ISOSORBIDE MONONITRATE ER 60 MG TAB.ER.24H PO SCH (08:34)
[2016-12-09] MEDS: TRIAMTERENE-HCTZ 37.5-25MG 1 EACH CAP PO SCH (08:34)
[2016-12-09] MEDS: ATORVASTATIN 20 MG TAB PO SCH (08:34)
[2016-12-09] MEDS: CLOPIDOGREL 75 MG TAB PO SCH (08:35)
[2016-12-09] MEDS: METOPROLOL TARTRATE 25 MG TAB PO SCH ×2 (08:35→21:06)
[2016-12-09] MEDS: LOSARTAN 50 MG TAB PO SCH (08:35)
[2016-12-09] MEDS: MAGNESIUM OXIDE 400 MG TAB PO SCH (08:35)
[2016-12-09] MEDS: MULTIVITAMINS, THERA 1 EACH TAB PO SCH (17:18)
[2016-12-09 19:59] VITALS: RESP 16
[2016-12-09] MEDS: CALCIUM CARB-VIT D 500MG-200UN 1 EACH TAB PO SCH (21:02)
[2016-12-09] MEDS: FERROUS SULFATE 325 MG TAB PO SCH (21:06)
[2016-12-09] MEDS: ASPIRIN 81 MG CHEW PO SCH (21:42)
[2016-12-10] MEDS: SODIUM CHLORIDE 0.9% 1,000 ML IV SCH (06:22)
[2016-12-10] MEDS: PANTOPRAZOLE 40 MG TABLET PO SCH (07:38)
[2016-12-10 08:18] VITALS: PULSE 75
[2016-12-10 08:20] VITALS: BP 172/80; TEMP 98.1
[2016-12-10] MEDS: ATORVASTATIN 20 MG TAB PO SCH (08:24)
[2016-12-10] MEDS: ISOSORBIDE MONONITRATE ER 60 MG TAB.ER.24H PO SCH (08:25)
[2016-12-10] MEDS: CLOPIDOGREL 75 MG TAB PO SCH (08:25)
[2016-12-10] MEDS: DOCUSATE 100 MG CAP PO SCH (08:25)
[2016-12-10] MEDS: METOPROLOL TARTRATE 25 MG TAB PO SCH (08:27)
[2016-12-10] MEDS: LOSARTAN 50 MG TAB PO SCH (08:27)
[2016-12-10] MEDS: MAGNESIUM OXIDE 400 MG TAB PO SCH (08:27)
[2016-12-10] MEDS: TRIAMTERENE-HCTZ 37.5-25MG 1 EACH CAP PO SCH (08:28)
--- NOTE | 2016-12-10 09:31 | XR ---
EXAMINATION TYPE: XR chest 2V DATE OF EXAM: 12/10/2016 COMPARISON: Prior chest x-ray 07/15/2016, chest x-ray 06/03/2015, CT abdomen 12/08/2016 HISTORY: Extended-care facility placement TECHNIQUE: Frontal and lateral views of the chest are obtained. FINDINGS: There is no focal air space opacity, pleural effusion, or pneumothorax seen. The cardiac silhouette size is within normal limits. Prominent lung volumes again noted. 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 Some minimal strand-like density at the left lung base may represent scarring or atelectasis. There a re coronary artery calcifications. There is evidence of old granulomatous disease, dense vascular rupal cifications. IMPRESSION: No acute cardiopulmonary process.
--- NOTE | 2016-12-10 09:44 | P.DS ---
Providers Date of admission: 12/08/16 05:14 Expected date of discharge: 12/10/16 Attending physician: Luis Hinson Consults: 12/08/16 13:00 Consult Physician Routine Consulting Provider: Miguelito Rowan Consult Reason/Comments: lumbar and sacral fractures Do you want consulting provider notified?: Already Contacted Primary care physician: Gus Franco - Discharge Diagnosis(es) (1) L1 vertebral fracture Current Visit: Yes Status: Acute (2) Status post fall Current Visit: Yes Status: Acute (3) Lumbar back pain with radiculopathy affecting right lower extremity Current Visit: Yes Status: Acute (4) Lumbar transverse process fracture Current Visit: Yes Status: Acute Hospital Course: This is a pleasant 85-year-old male who presented with abdominal pain, right lateral hip pain, right lower extremity radiculopathy that is post fall. He presented to the emergency department for further evaluation. CT abdomen and pelvis was taken at that time which did show evidence of an L1 compression fracture deformity and transverse process fractures at L5. Evidence of fracture of the right sacrum was also found which was previously seen on an MRI does not appear to be new since his fall. He was admitted for further evaluation treatment. Since being admitted, his abdominal pain has resolved. He is not currently complaining of any abdominal pain or discomfort. An LSO brace has also been ordered, delivered, and fitted appropriately for his L1 compression fracture deformity. Patient states he is not currently experiencing any lumbar pain. His most significant pain is radicular pain radiating towards the right lateral hip and down the right lower extremity. This pain is exacerbated while trying to stand while ambulating. His symptoms are stable and controlled while sitting in a chair or lying in bed. He is currently planning to be discharged to [facility] today, . Condition on day of discharge stable. Patient currently denies any nausea, vomiting, fever, or chills. Patient is eating and voiding freely without difficulty. Patient should continue to wear LSO brace for comfort and support while sitting upright at greater than 45, while working with therapy, and while ambulating; patient does not have to wear the brace while lying in bed or bathing. Patient should avoid excessive bending, twisting, and lifting; no lifting greater than 10 pounds. We'll plan to give her a prescription for [place] 5 mg/225 one tab every 6 hours as needed for pain at discharge. He will also be given a prescription for a prednisone 10 mg taper which he will take 3 tabs for 4 days, 2 tabs for 4 days, then 1 tab 4 days. He should avoid anti- inflammatories on this taper. Patient was previously prescribed Plavix 75 mg for 90 days. He stopped taking this medication at approximately 83 due to bloody nose. He has refuses medication while in the hospital. Nursing states he was only supposed to take this medication for 90 days. He will not be given a prescription for discharge. He should follow-up with a provider who prescribed Plavix for further evaluation. He does continue to take aspirin 81 mg. Physical Exam on day of discharge: Patient is awake, alert, and oriented 3 Vital signs stable Good chest excursion with deep inspiration and expiration Abdomen soft nontender No signs or symptoms of DVT; no calf pain Extensor hallucis longus, plantarflexion, and dorsiflexion positive sustained bilateral lower extremities Difficulty with performing right hip flexion and knee extension Adequate full range of motion left lower extremity without difficulty No pain with internal and external rotation of the hips bilaterally Vascular intact bilateral lower extremities Nontender bilaterally; No pain with palpation of bilateral calves; No obvious signs of DVT Patient Condition at Discharge: Stable Plan - Discharge Summary New Discharge Prescriptions: New HYDROcodone/APAP 5-325MG [[place] 5] 1 each PO Q6HR PRN #90 tab PRN Reason: Pain predniSONE See Taper PO DIRECTED #24 tab Aspirin 81 mg PO HS Continue Multivitamins, Thera [Multivitamin (formulary)] 1 tab PO DAILY Calcium Carbonate/Vitamin D3 [Calcium 600-Vit D3 400 Tablet] 1 tab PO DAILY Magnesium Chloride [Slow-Mag] 64 mg PO DAILY Ferrous Sulfate [Iron (65 MG Elemental)] 325 mg PO HS [facility]-3 Fatty Acids/Fish Oil [Fish Oil 1,000 mg Softgel] 1,000 mg PO DAILY Isosorbide Mononitrate ER [Imdur] 60 mg PO QAM Triamterene-Hctz 37.5-25Mg [Dyazide 37.5-25 Capsule] 1 cap PO DAILY Simvastatin [Zocor] 40 mg PO DAILY Omeprazole 40 mg PO DAILY Metoprolol Tartrate 25 mg PO BID Vit C/E/Zn/Coppr/Lutein/Zeaxan [Preservision Areds 2 Softgel] 1 cap PO BID Ubidecarenone [Co Q-10] 200 mg PO HS Docusate [Colace] 100 mg PO DAILY Losartan Potassium [Cozaar] 50 mg PO DAILY Discontinued Naproxen Sodium [Aleve] 220 mg PO Q12HR PRN PRN Reason: Pain Aspirin [Adult Low Dose Aspirin EC] 81 mg PO HS Discharge Medication List Calcium Carbonate/Vitamin D3 [Calcium 600-Vit D3 400 Tablet] 1 tab PO DAILY [History] Ferrous Sulfate [Iron (65 MG Elemental)] 325 mg PO HS 12/23/14 [History] Isosorbide Mononitrate ER [Imdur] 60 mg PO QAM 12/23/14 [History] Magnesium Chloride [Slow-Mag] 64 mg PO DAILY 12/23/14 [History] Metoprolol Tartrate 25 mg PO BID 12/23/14 [History] Multivitamins, Thera [Multivitamin (formulary)] 1 tab PO DAILY 12/23/14 [History ] [facility]-3 Fatty Acids/Fish Oil [Fish Oil 1,000 mg Softgel] 1,000 mg PO DAILY 12/23 [History] Omeprazole 40 mg PO DAILY 12/23/14 [History] Simvastatin [Zocor] 40 mg PO DAILY 12/23/14 [History] Triamterene-Hctz 37.5-25Mg [Dyazide 37.5-25 Capsule] 1 cap PO DAILY 12/23/14 [ History] Ubidecarenone [Co Q-10] 200 mg PO HS 06/01/16 [History] Vit C/E/Zn/Coppr/Lutein/Zeaxan [Preservision Areds 2 Softgel] 1 cap PO BID 06/01 [History] Docusate [Colace] 100 mg PO DAILY 12/08/16 [History] Losartan Potassium [Cozaar] 50 mg PO DAILY 12/08/16 [History] Aspirin 81 mg PO HS 12/10/16 [Rx] HYDROcodone/APAP 5-325MG [[place] 5] 1 each PO Q6HR PRN #90 tab 12/10/16 [Rx] predniSONE See Taper PO DIRECTED #24 tab 12/10/16 [Rx] Follow up Appointment(s)/Referral(s): Gus Franco MD [Primary Care Provider] - 1-2 days [facility], [NON-STAFF] - Gwyn Garrido, MORENO [PHYSICIAN INFORMIX DEVELOPER] - 2 Weeks (Patient may follow-up with Gwyn Garrido PA-C or Dr. Nabeel Rowan at [facility] in 2-3 weeks following discharge. ) Activity/Diet/Wound Care/Special Instructions: 1. Patient may wear LSO brace for comfort and support while sitting upright at greater than 45, while working with therapy, and while ambulating; patient does not have to wear the brace while lying in bed or bathing 2. Patient should avoid excessive bending, twisting, and lifting; no lifting greater than 10 pounds Discharge Disposition: TRANSFER TO SNF/ECF
[2016-12-10] MEDS: MULTIVITAMINS, THERA 1 EACH TAB PO SCH (12:28)
[2016-12-10] MEDS: CALCIUM CARB-VIT D 500MG-200UN 1 EACH TAB PO SCH (12:28)
== END 2016-12-10 14:07 ==
LOC: EC 01:49 → 3SUR 05:14
PROVIDERS: ADMIT Orthopaedic Surgery; ATTEND Orthopaedic Surgery
CPT/HCPCS: 36415; 71020; 74000; 74177; 80053; 81003; 82150; 83690; 85025; 93005; 96361; 96374; 96375; 99285